=== PATIENT | male | born 1965 | race Caucasian/White ===

== ENCOUNTER → 2016-09-01 | Outpatient (CLI) | payer BC ==
--- NOTE | 2016-09-04 09:11 | MR ---
EXAMINATION: MRI left shoulder HISTORY: Unable to lift arm COMPARISON: None TECHNIQUE: Multiplanar and multisequence images obtained of the left shoulder without contrast. FINDINGS: The acromion is flat with a slight hook. Mild acromioclavicular osseous changes are noted. The supraspinatus, infraspinatus, and teres minor tendons appear grossly intact. The long head edu ps tendon is present within the bicipital groove. Subscapularis tendon appears intact. No significan t joint effusion. There is mildly increased signal within the proximal long head biceps tendon. Ther e is a superior labral tear extending anterior to posteriorly. The glenohumeral articular cartilage is mildly thinned. The inferior glenohumeral ligament is mildly thickened. No suspicious bone marrow signal changes. IMPRESSION: 1. SLAP tear without definite extension into the long head biceps tendon. 2. Mild long head biceps tendinopathy. 3. Thickening of the inferior glenohumeral ligament, this can be seen with evidence of capsulitis. 4. Mild glenohumeral osteoarthritic changes.
== END ==
LOC: MW.MRI 10:18
PROVIDERS: ATTEND Family Medicine
DX: M75.102 Unspecified rotator cuff tear or rupture of left shoulder, not specified as traumatic (principal)
CPT/HCPCS: 73221-26-LT; 73221-LT

== ENCOUNTER 2017-04-03 11:45 | Day surgery (SDC) | payer BC ==
[~2017-04-03 11:45] MED LIST: Lactated Ringers 1,000 ML IV SCH
[2017-04-03] MEDS ORDERED: Propofol 200 MG/20 ML SDV ONE (12:43)
[2017-04-03] MEDS ORDERED: fentaNYL 100 MCG/2 ML SDV ONE (12:43)
--- NOTE | 2017-04-03 13:32 | PCM.OPNOTE ---
- General Post-Op/Procedure Note Date of Surgery/Procedure: 04/03/17 Operative Procedure(s): egd w bx. colonoscopy w snare polypectomy Findings: see dict [id number] Pre Op Diagnosis: gerd and scrn colonoscopy Post-Op Diagnosis: gerd, colon polyp Anesthesia Technique: Moderate Sedation Primary Surgeon: Huber Mcadams Pathology: egd bx colon polyp at 50 cm 3 mm sessile polyp, snare Complications: None Condition: Good
--- NOTE | 2017-04-03 13:45 | PCM.POSTAN ---
POST ANESTHESIA ASSESSMENT - MENTAL STATUS Mental Status: Alert, Oriented - RESPIRATORY Respiratory Status: Respiratory Rate WNL, Airway Patent, O2 Saturation Stable - CARDIOVASCULAR CV Status: Pulse Rate WNL, Blood Pressure Stable - GASTROINTESTINAL GI Status: No Symptoms - POST OP HYDRATION Hydration Status: Adequate & Stable
--- NOTE | 2017-04-03 13:45 | PCM.PREANE ---
Preanesthetic Assessment - Procedure Proposed Procedure: colonoscopy - Anesthesia/Transfusion/Family Hx Anesthesia History: Prior Anesthesia Without Reaction Transfusion History: No Prior Transfusion(s) Intubation History: Unknown - Review of Systems General: No Symptoms Pulmonary: Other (smoker) Cardiovascular: Other (HLD) Gastrointestinal: Other (GERD) Neurological: No Symptoms Other: Reports: None - Physical Assessment NPO Status Date: 04/02/17 NPO Status Time: 22:00 O2 Sat by Pulse Oximetry: 94 Respiratory Rate: 25 Vital Signs: Last Vital Signs Temp 98.8 F 04/03/17 12:09 Pulse 83 04/03/17 13:33 Resp 25 H 04/03/17 13:33 BP 122/90 04/03/17 13:33 Pulse Ox 94 L 04/03/17 13:33 Height: 5 ft 9 in Weight: 220 lb ASA Class: 2 Mental Status: Alert & Oriented x3 Airway Class: Mallampati = 1 Dentition: Reports: Normal Dentition Thyro-Mental Finger Breadths: 3 Mouth Opening Finger Breadths: 3 ROM/Head Extension: Full Lungs: Clear to Auscultation, Normal Respiratory Effort Cardiovascular: Regular Rate, Regular Rhythm, No Murmurs - Allergies Allergies/Adverse Reactions: Allergies Allergy/AdvReac Type Severity Reaction Status Date / Time No Known Allergies Allergy Verified 03/29/17 07:56 - Blood Blood Available: No Product(s) Available: None - Anesthesia Plan Pre-Op Medication Ordered: None - Acknowledgements Anesthesia Type Planned: MAC Pt an Appropriate Candidate for the Planned Anesthesia: Yes Alternatives and Risks of Anesthesia Discussed w Pt/Guardian: Yes Pt/Guardian Understands and Agrees with Anesthesia Plan: Yes PreAnesthesia Questionnaire Respiratory History: Reports: Other (See Below) Other Respiratory History: states he had undiagnosed sleep apnea in the past, has lost weight and she doesnt feel he has it anymore Gastrointestinal History: Reports: GERD Endocrine/Metabolic History: Reports: Obesity/BMI 30+, Other (See Below) Other Endocrine/Metabolic History: "prediabetic" - Past Surgical History Head Surgeries/Procedures: Reports: None Musculoskeletal Surgical History: Reports: Arthroscopic Knee - SUBSTANCE USE Smoking Status *Q: Never Smoker Tobacco Use Within Last Twelve Months: Snuff/Dip Recreational Drug Use History: No - HOME MEDS Home Medications: Home Meds Aspirin [Adult Low Dose Aspirin EC] 81 mg PO DAILY 03/29/17 [History] Omeprazole 40 mg PO DAILY 03/29/17 [History] - CURRENT (IN HOUSE) MEDS Current Meds: Current Medications Lactated Ringer's (Ringers, Lactated) 1,000 mls @ 125 mls/hr IV ASDIRECTED MARIVEL Last Admin: 04/03/17 12:10 Dose: 125 mls/hr Discontinued Medications Fentanyl (Sublimaze) Confirm Administered Dose 100 mcg .ROUTE .STK-MED ONE Stop: 04/03/17 12:44 Propofol (Diprivan 20 Ml) Confirm Administered Dose 400 mg .ROUTE .STK-MED ONE Stop: 04/03/17 12:44
--- NOTE | 2017-04-03 14:08 | PCM48HPAN ---
Post Anesthesia Note - EVALUATION WITHIN 48HRS OF ANESTHETIC Vital Signs in Normal Range: Yes Patient Participated in Evaluation: Yes Respiratory Function Stable: Yes Airway Patent: Yes Cardiovascular Function Stable: Yes Hydration Status Stable: Yes Pain Control Satisfactory: Yes Nausea and Vomiting Control Satisfactory: Yes Mental Status Recovered: Yes
--- NOTE | 2017-04-03 18:45 | OR ---
SURGEON: Huber Mcadams MD DATE OF PROCEDURE: 04/03/2017 PREOPERATIVE DIAGNOSIS: Gastroesophageal reflux disease and screening colonoscopy. POSTOPERATIVE DIAGNOSIS: Gastroesophageal reflux disease and screening colonoscopy. PROCEDURES PERFORMED: EGD with biopsy and colonoscopy with snare polypectomy. COMPLICATIONS: None. PROCEDURE IN DETAIL: EGD: The patient was taken to the endoscopy room, and with the STORAGE BATTERY CHARGER, Diprivan was administered. A well-lubricated EGD scope was gently inserted through the oropharynx, down the esophagus, passing through the gastroesophageal junction, into the stomach. The mucosa was examined upon the passage. Any etiology will be noted. Once in the stomach, we continued to advance to the distal antrum, passed through the pylorus into the second portion of the duodenum. Again, the mucosa was examined for any abnormality and etiology. The scope was then retrieved back to the stomach and then retroflexed to look at the fundus of the stomach. If a biopsy was indicated, we will biopsy the antrum, body, and gastroesophageal junction. The air will be sucked out while the scope is retrieved to reduce the patient's discomfort. The patient tolerated the procedure well. There were no intraoperative complications. Dr. Mcadams was present through the whole procedure. Prior to surgery, a time-out had been called, the patient identified, procedure identified and antibiotic administered. The patient was taken to the endoscopy room. A time out was called, patient identified, and procedure identified. Diprivan was then administrated. Patient went from awake to sleep, hearing doctor talking or door closing is normal. Perineum inspection and digital examination were then performed. A well- lubricated colonoscope was gently inserted through the rectum, advanced past the rectosigmoid junction, the descending colon, splenic flexure, transverse colon, hepatic flexure, ascending colon, arrived to the cecum. Cecum was identified as dictated in the finding. Then the scope was carefully withdrawn while attention was paid to the mucosal surface for any abnormality. Air will be sucked out during the scope withdrawal. At the rectum, retroflexed to examine any rectal diseases, fistula or hemorrhoids. During mucosal examination, abnormality or polyp encountered. Using snare equipment, the abnormality or the polyp was then snared off using electrocautery. The Patient tolerated procedure well. There were no intraoperative complications, and Dr. Mcadams was present throughout the whole procedure. FINDINGS: EGD Findings: 1. The patient is easily sedated with STORAGE BATTERY CHARGER and Diprivan. The patient is soundly snoring. 2. Oropharynx and proximal esophagus are free of disease. No inflammation, stricture, ulceration, and distal esophagus at 40. GE junction at 40, shows mild salmon color change consistent with acid reflux. Stomach rugae is normal in appearance and there is no blood, ulcer, bile, food observed. Antrum is mildly inflamed, but there is no blood, no ulcer. Duodenum was grossly normal in appearance. Scope retrieved back to the stomach. Retroflexed look at the fundus of stomach, there is no hiatal hernia. Biopsy done at antrum, body, GE junction at 40, and sucked out the air while scope pulling out. Colonoscopy Findings: 1. The patient is easily sedated with STORAGE BATTERY CHARGER and Diprivan. The patient is soundly snoring. 2. Bowel prep is average with a large amount of liquid stool. No semi-formed stool. 3. The patient's colon was rather straight forward. Cecum indicated by ileocecal fold, one-to-one indentation, light immittance, and appendix orifice was observed. Mucosa examined upon scope pulling out with some irrigation and the patient has mild diverticulosis on the left colon. No signs or symptoms of diverticulitis and there is a small tiny polyp at distance 50 when scope pulling out. A sessile polyp was removed by snare polypectomy, and there was no other mass, growth, inflammation, stricture, ulceration, AV malformation, and the patient has mild internal hemorrhoids. No external hemorrhoids. The patient would benefit from a repeat colonoscopy in 3 to 5 years from today or if clinically indicated otherwise or if polyp pathology indicated otherwise. PRIMARY SURGEON: SECONDARY SURGEON: INSPECTOR BOILER: REASON INSPECTOR BOILER WAS NECESSARY: ROLE OF INSPECTOR BOILER: GREGORY KEVIN /[id number]
== END 2017-04-03 14:00 | disposition home or self-care (01) ==
LOC: MW.SDS 11:45
PROVIDERS: ATTEND Surgery
DX: Z12.11 Encounter for screening for malignant neoplasm of colon (principal); D12.4 Benign neoplasm of descending colon; K29.50 Unspecified chronic gastritis without bleeding; K57.30 Diverticulosis of large intestine without perforation or abscess without bleeding; K21.9 Gastro-esophageal reflux disease without esophagitis; F17.220 Nicotine dependence, chewing tobacco, uncomplicated; E78.5 Hyperlipidemia, unspecified; E66.3 Overweight; Z68.32 Body mass index [BMI] 32.0-32.9, adult; Z79.82 Long term (current) use of aspirin; Z79.899 Other long term (current) drug therapy; Z98.890 Other specified postprocedural states
CPT/HCPCS: 43239; 45385; J3010; J7120; 00740; 88305; 88312; J2704

== ENCOUNTER 2019-10-17 07:23 | Day surgery (SDC) | payer BC ==
[~2019-10-17 07:23] MED LIST changes: +Glycopyrrolate 0.2 MG/ML SDV ONE; +Lidocaine 2% 5 ML SDV ONE; +Midazolam 1 MG/ML 2 ML SDV ONE; +Propofol 200 MG/20 ML SDV ONE
--- NOTE | 2019-10-17 07:56 | PCM.PREANE ---
Preanesthetic Assessment - Anesthesia/Transfusion/Family Hx Anesthesia History: Prior Anesthesia Without Reaction Family History of Anesthesia Reaction: No Transfusion History: No Prior Transfusion(s) Intubation History: Unknown - Review of Systems General: No Symptoms Pulmonary: No Symptoms Cardiovascular: No Symptoms Gastrointestinal: No Symptoms, Other (colon polyp 3 years ago) Neurological: No Symptoms Other: Reports: None - Physical Assessment Height: 5 ft 9 in Weight: 110.223 kg ASA Class: 3 Mental Status: Alert & Oriented x3 Airway Class: Mallampati = 2 Dentition: Reports: Normal Dentition Thyro-Mental Finger Breadths: 3 Mouth Opening Finger Breadths: 3 ROM/Head Extension: Full Lungs: Clear to Auscultation, Normal Respiratory Effort Cardiovascular: Regular Rate, Regular Rhythm - Allergies Allergies/Adverse Reactions: Allergies Allergy/AdvReac Type Severity Reaction Status Date / Time No Known Allergies Allergy Verified 10/13/19 13:53 - Blood Blood Available: No - Anesthesia Plan Pre-Op Medication Ordered: None - Acknowledgements Anesthesia Type Planned: MAC Pt an Appropriate Candidate for the Planned Anesthesia: Yes Alternatives and Risks of Anesthesia Discussed w Pt/Guardian: Yes Pt/Guardian Understands and Agrees with Anesthesia Plan: Yes PreAnesthesia Questionnaire HEENT History: Reports: Allergic Rhinitis Cardiovascular History: Reports: High Cholesterol Respiratory History: Reports: Sleep Apnea, Other (See Below) (lung nodule on CXR 10/17, recheck in 3 months) Other Respiratory History: does not use a CPAP Gastrointestinal History: Reports: Colon Polyp, GERD Genitourinary History: Reports: None Neurological History: Reports: None Psychiatric History: Reports: None Endocrine/Metabolic History: Reports: Obesity/BMI 30+ (BMI 35.9), Other (See Below) Other Endocrine/Metabolic History: "prediabetic" Hematologic History: Reports: None Immunologic History: Reports: None Oncologic (Cancer) History: Reports: None Dermatologic History: Reports: None - Past Surgical History Head Surgeries/Procedures: Reports: None HEENT Surgical History: Reports: None Cardiovascular Surgical History: Reports: None Respiratory Surgical History: Reports: None GI Surgical History: Reports: Colonoscopy (EGD and colonoscopy '17), EGD Male Surgical History: Reports: None Endocrine Surgical History: Reports: None Neurological Surgical History: Reports: None Musculoskeletal Surgical History: Reports: Arthroscopic Knee, Other (See Below) Other Musculoskeletal Surgeries/Procedures:: left knee surgery for removal of bone chips Oncologic Surgical History: Reports: None Dermatological Surgical History: Reports: None - SUBSTANCE USE Smoking Status *Q: Never Smoker Tobacco Use Within Last Twelve Months: Smokeless Tobacco - HOME MEDS Home Medications: Home Meds Omeprazole 40 mg PO ASDIRECTED 03/29/17 [History] Loratadine [Claritin] 10 mg PO DAILY 10/13/19 [History] - CURRENT (IN HOUSE) MEDS Current Meds: Current Medications Lactated Ringer's (Ringers, Lactated) 1,000 mls @ 125 mls/hr IV ASDIRECTED MARIVEL Discontinued Medications Glycopyrrolate (Robinul) Confirm Administered Dose 0.2 mg .ROUTE .STK-MED ONE Stop: 10/17/19 06:56 Lidocaine (Xylocaine-Mpf 2%) Confirm Administered Dose 5 ml .ROUTE .STK-MED ONE Stop: 10/17/19 06:56 Midazolam HCl (Versed 1 Mg/Ml) Confirm Administered Dose 2 mg .ROUTE .STK-MED ONE Stop: 10/17/19 06:56 Propofol (Diprivan 20 Ml) Confirm Administered Dose 600 mg .ROUTE .STK-MED ONE Stop: 10/17/19 06:56
[2019-10-17] MEDS ORDERED: Lactated Ringers 1,000 ML IV SCH (08:45)
--- NOTE | 2019-10-17 09:26 | PCM.OPNOTE ---
- General Post-Op/Procedure Note Date of Surgery/Procedure: 10/17/19 Operative Procedure(s): egd w bx. colonoscopy w bx Findings: see [id number] Pre Op Diagnosis: gerd and hx colon polyp Post-Op Diagnosis: Same Anesthesia Technique: Moderate Sedation Primary Surgeon: Huber Mcadams Pathology: sent Complications: None Condition: Good
--- NOTE | 2019-10-17 09:51 | PCM.POSTAN ---
POST ANESTHESIA ASSESSMENT - MENTAL STATUS Mental Status: Alert, Oriented - VITAL SIGNS Vital Signs: Last Vital Signs Temp 36.1 C 10/17/19 07:35 Pulse 99 10/17/19 09:48 Resp 24 H 10/17/19 09:48 BP 129/95 H 10/17/19 09:48 Pulse Ox 93 L 10/17/19 09:48 - RESPIRATORY Respiratory Status: Respiratory Rate WNL, Airway Patent, O2 Saturation Stable - CARDIOVASCULAR CV Status: Pulse Rate WNL, Blood Pressure Stable - GASTROINTESTINAL GI Status: No Symptoms - PAIN Pain Score: 0 - POST OP HYDRATION Hydration Status: Adequate & Stable - OBSERVATIONS Free Text/Narrative:: No anesthesia problems
--- NOTE | 2019-10-17 10:08 | PCM48HPAN ---
Post Anesthesia Note - EVALUATION WITHIN 48HRS OF ANESTHETIC Vital Signs in Normal Range: Yes Patient Participated in Evaluation: Yes Respiratory Function Stable: Yes Airway Patent: Yes Cardiovascular Function Stable: Yes Hydration Status Stable: Yes Pain Control Satisfactory: Yes Nausea and Vomiting Control Satisfactory: Yes Mental Status Recovered: Yes Vital Signs: Last Vital Signs Temp 36.7 C 10/17/19 09:54 Pulse 93 10/17/19 09:54 Resp 16 10/17/19 09:54 BP 120/97 H 10/17/19 09:54 Pulse Ox 94 L 10/17/19 09:54 - COMMENTS/OBSERVATIONS Free Text/Narrative:: No anesthesia problems
--- NOTE | 2019-10-17 13:14 | OR ---
SURGEON: Huber Mcadams MD DATE OF PROCEDURE: 10/17/2019 PREOPERATIVE DIAGNOSES: Gastroesophageal reflux disease and history of colon polyp, tubulovillous polyp. POSTOPERATIVE DIAGNOSES: Gastroesophageal reflux disease and history of colon polyp, tubulovillous polyp. PROCEDURES PERFORMED: Esophagogastroduodenoscopy with biopsy and colonoscopy with biopsy. DESCRIPTION OF PROCEDURE: EGD: The patient was taken to the endoscopy room, and with the NANNY CAREGIVER, Diprivan was administered. A well-lubricated EGD scope was gently inserted through the oropharynx, down the esophagus, passing through the gastroesophageal junction, into the stomach. The mucosa was examined upon the passage. Any etiology will be noted. Once in the stomach, we continued to advance to the distal antrum, passed through the pylorus into the second portion of the duodenum. Again, the mucosa was examined for any abnormality and etiology. The scope was then retrieved back to the stomach and then retroflexed to look at the fundus of the stomach. If a biopsy was indicated, we will biopsy the antrum, body, and gastroesophageal junction. The air will be sucked out while the scope is retrieved to reduce the patient's discomfort. The patient tolerated the procedure well. There were no intraoperative complications. Dr. Mcadams was present through the whole procedure. Prior to surgery, a time-out had been called, the patient identified, procedure identified and antibiotic administered. The patient was taken to the endoscopy room. A time out was called, patient identified, and procedure identified. Diprivan was then administrated. Patient went from awake to sleep, hearing doctor talking or door closing is normal. Perineum inspection and digital examination were then performed. A well- lubricated colonoscope was gently inserted through the rectum, advanced past the rectosigmoid junction, the descending colon, splenic flexure, transverse colon, hepatic flexure, ascending colon, arrived to the cecum. Cecum was identified as dictated in the finding. Then the scope was carefully withdrawn while attention was paid to the mucosal surface for any abnormality. Air will be sucked out during the scope withdrawal. At the rectum, retroflexed to examine any rectal diseases, fistula or hemorrhoids. During mucosal examination, abnormality or polyp was noted; picture taken and biopsy performed. Patient tolerated procedure well. There were no intraoperative complications, and Dr. Mcadams was present throughout the whole procedure. FINDINGS: EGD findings: 1. The patient is easily sedated with NANNY CAREGIVER and Diprivan, the patient is soundly snoring. 2. Oropharynx and proximal esophagus are free of disease, infection, stricture, or inflammation. Distal esophagus at GE junction at 40 shows mild salmon-colored change, consistent with mild acid reflux. Stomach rugae are normal in appearance. Antrum is a little bit inflamed, mild gastritis. Duodenum is grossly normal. Retroflexed look at the fundus of stomach, there is no hiatal hernia. Biopsy done at antrum, body, GE junction at 40 and sucked out the gas while scope pulling out. During the whole study, there is no ulcer, blood, bile, or food particle observed. Colonoscopy findings: 1. The patient is easily sedated with NANNY CAREGIVER and Diprivan, the patient is soundly snoring. 2. Bowel prep is average with some moderate amount of liquid stool, no semi- formed stool. Colon rather straightforward. Cecum indicated by ileocecal fold, one-to-one indentation, light emittance, and appendiceal orifice. ScopeGuide is pointing south. Mucosa examined upon scope pulling out. The patient has mild diverticulosis on the left colon, no signs or symptoms of diverticulitis. Two small polyps, one at 25 cm when scope pulling out, which is 3 mm size, and the other one is 15 cm when the scope go in and 3 mm size. Sessile polyp, removed with cold biopsy forceps. The patient has mild internal hemorrhoid. The patient would benefit from repeat colonoscopy in 3 years from today or if clinically indicated or pathology of the polyp indicated otherwise. The patient is having severe sleep apnea. Next time, colonoscopy may be considered as intubated endoscopy per Anesthesiology recommendation. GREGORY / DORITA /[id number]
== END 2019-10-17 10:23 | disposition home or self-care (01) ==
LOC: MW.SDS 07:23
PROVIDERS: ATTEND Surgery
DX: Z12.11 Encounter for screening for malignant neoplasm of colon (principal); D12.6 Benign neoplasm of colon, unspecified; K29.30 Chronic superficial gastritis without bleeding; B96.81 Helicobacter pylori [H. pylori] as the cause of diseases classified elsewhere; K21.9 Gastro-esophageal reflux disease without esophagitis; E11.9 Type 2 diabetes mellitus without complications; E78.5 Hyperlipidemia, unspecified; K64.8 Other hemorrhoids; E78.00 Pure hypercholesterolemia, unspecified; G47.33 Obstructive sleep apnea (adult) (pediatric); F17.220 Nicotine dependence, chewing tobacco, uncomplicated; E66.9 Obesity, unspecified; Z68.35 Body mass index [BMI] 35.0-35.9, adult; Z79.899 Other long term (current) drug therapy; Z86.010 Personal history of colon polyps; Z98.890 Other specified postprocedural states; Z99.89 Dependence on other enabling machines and devices
CPT/HCPCS: 43239; 45380; 82962; J2001; J2250; J2704; J3490; J7120

== ENCOUNTER 2020-02-04 07:26 | Emergency (ER) | payer BC ==
[2020-02-04] MEDS ORDERED: Aspirin 81 MG Tab.Chew PO ONE (07:36)
[2020-02-04] MEDS ORDERED: Sodium Chloride 0.9% 2.5 ML Syringe FLUSH PRN ×2 (07:36)
[2020-02-04] MEDS ORDERED: Sodium Chloride 0.9% 10 ML Syringe FLUSH PRN (07:36)
--- NOTE | 2020-02-04 07:39 | EDM.PDOC ---
ED HPI GENERAL MEDICAL PROBLEM - General Chief Complaint: Chest Pain Stated Complaint: CHEST PAIN Time Seen by Provider: 02/04/20 07:35 - History of Present Illness INITIAL COMMENTS - FREE TEXT/NARRATIVE: History of present illness: Patient presents with chest pain that began yesterday afternoon at 3:00 substernal and he describes it as throbbing.. Patient has type 2 diabetes and a recent diagnosis of congestive heart failure. He states he is feeling better now the pain has gone away he denies any nausea vomiting no shortness of breath no diaphoresis although he has had some swelling in his legs and his hands he denies any cough or fever nothing seems to make the pain better or worse it went away on its own after time was present all night long Review of systems: As per history of present illness and below otherwise all systems reviewed and negative. Past medical history: As per history of present illness and as reviewed below otherwise noncontributory. Surgical history: As per history of present illness and as reviewed below otherwise noncontributory. Social history: No reported history of drug or alcohol abuse. Family history: As per history of present illness and as reviewed below otherwise noncon tributory. Physical exam: HEENT: Atraumatic, normocephalic, pupils reactive, negative for conjunctival pallor or scleral icterus, mucous membranes moist, throat clear, neck supple, nontender, trachea midline. Lungs: Clear to auscultation, breath sounds equal bilaterally, chest nontender. Heart: S1S2, regular, negative for clicks, rubs, or JVD. Abdomen: Soft, nondistended, nontender. Negative for masses or hepatosplenomegaly. Negative for costovertebral tenderness. Pelvis: Stable nontender. Genitourinary: Deferred. Rectal: Deferred. Extremities: Atraumatic, negative for cords or calf pain. Neurovascular unremarkable. 1+ edema in the lower extremities in the hands Neuro: Awake, alert, oriented. Cranial nerves II through XII unremarkable. Cerebellum unremarkable. Motor and sensory unremarkable throughout. Exam nonfocal. Diagnostics: [] Therapeutics: [] Impression: Chest pain [] Plan: Chest pain work-up reevaluation. [] Definitive disposition and diagnosis as appropriate pending reevaluation and review of above. sternal chest Pain Score (Numeric/FACES): 1 - Related Data Allergies Allergy/AdvReac Type Severity Reaction Status Date / Time No Known Allergies Allergy Verified 02/04/20 07:30 Home Meds: Home Meds Omeprazole 40 mg PO ASDIRECTED 03/29/17 [History] Loratadine [Claritin] 10 mg PO DAILY 10/13/19 [History] Furosemide [Lasix] 02/04/20 [History] hydroCHLOROthiazide [Hydrochlorothiazide] 02/04/20 [History] metFORMIN [Glucophage XR] 02/04/20 [History] Past Medical History HEENT History: Reports: Allergic Rhinitis Cardiovascular History: Reports: Heart Failure, High Cholesterol Respiratory History: Reports: Sleep Apnea, Other (See Below) Other Respiratory History: does not use a CPAP Gastrointestinal History: Reports: Colon Polyp, GERD Genitourinary History: Reports: None Neurological History: Reports: None Psychiatric History: Reports: None Endocrine/Metabolic History: Reports: Diabetes, Type II, Obesity/BMI 30+, Other (See Below) Other Endocrine/Metabolic History: "prediabetic" Hematologic History: Reports: None Immunologic History: Reports: None Oncologic (Cancer) History: Reports: None Dermatologic History: Reports: None - Infectious Disease History Infectious Disease History: Reports: Chicken Pox - Past Surgical History Head Surgeries/Procedures: Reports: None HEENT Surgical History: Reports: None Cardiovascular Surgical History: Reports: None Respiratory Surgical History: Reports: None GI Surgical History: Reports: Colonoscopy, EGD Male Surgical History: Reports: None Endocrine Surgical History: Reports: None Neurological Surgical History: Reports: None Musculoskeletal Surgical History: Reports: Arthroscopic Knee, Other (See Below) Other Musculoskeletal Surgeries/Procedures:: left knee surgery for removal of bone chips Oncologic Surgical History: Reports: None Dermatological Surgical History: Reports: None Social & Family History - Family History Family Medical History: Noncontributory - Tobacco Use Years of Tobacco use: 40 Packs/Tins Daily: 1 - Recreational Drug Use Recreational Drug Use: No ED ROS GENERAL - Review of Systems Review Of Systems: See Below ED EXAM, GENERAL - Physical Exam Exam: See Below EKG INTERPRETATION EKG Interpretation Comments: EKG is normal sinus rhythm with a rate 83 bpm with a left axis no ischemic changes read and interpreted by me Course - Vital Signs Text/Narrative:: Patient is pain-free in the ED nonischemic EKG troponin and BNP are negative a 1 view chest x-ray was read interpreted by me with no acute cardiopulmonary pathology. Patient would like to go home he has cardiology he can follow-up with. I recommend he follow-up with his physicians assistant calling today and return to the ED for worsening chest pain. Last Recorded V/S: Last Vital Signs Temp 36.3 C 02/04/20 08:08 Pulse 63 02/04/20 08:32 Resp 16 02/04/20 08:32 BP 136/105 H 02/04/20 08:32 Pulse Ox 97 02/04/20 08:32 - Orders/Labs/Meds Orders: Active Orders 24 hr Category Date Time Status EKG Documentation Completion [RC] STAT Care 02/04/20 07:36 Active Sodium Chloride 0.9% [Saline Flush] Med 02/04/20 07:36 Active 10 ml FLUSH ASDIRECTED PRN Sodium Chloride 0.9% [Saline Flush] Med 02/04/20 07:36 Active 2.5 ml FLUSH ASDIRECTED PRN Saline Lock Insert [OM.PC] Stat Oth 02/04/20 07:36 Ordered Medication Orders Sodium Chloride (Saline Flush) 2.5 ml FLUSH ASDIRECTED PRN PRN Reason: Keep Vein Open Last Admin: 02/04/20 07:32 Dose: 2.5 ml Documented by: SARI Sodium Chloride (Saline Flush) 10 ml FLUSH ASDIRECTED PRN PRN Reason: Keep Vein Open Last Admin: 02/04/20 07:32 Dose: 10 ml Documented by: SARI Labs: Laboratory Tests 02/04/20 02/04/20 02/04/20 Range/Units 07:42 07:42 07:42 WBC 5.48 (4.0-11.0) K/uL RBC 4.31 L (4.50-5.90) M/uL Hgb 13.7 (13.0-17.0) g/dL Hct 39.8 (38.0-50.0) % MCV 92.3 (80.0-98.0) fL MCH 31.8 (27.0-32.0) pg MCHC 34.4 (31.0-37.0) g/dL RDW Std Deviation 42.1 (28.0-62.0) fl RDW Coeff of Ally 12 (11.0-15.0) % Plt Count 294 (150-400) K/uL MPV 8.50 (7.40-12.00) fL Neut % (Auto) 47.6 L (48.0-80.0) % Lymph % (Auto) 35.6 (16.0-40.0) % [place] % (Auto) 10.9 (0.0-15.0) % Eos % (Auto) 5.5 (0.0-7.0) % Baso % (Auto) 0.4 (0.0-1.5) % Neut # (Auto) 2.6 (1.4-5.7) K/uL Lymph # (Auto) 2.0 (0.6-2.4) K/uL [place] # (Auto) 0.6 (0.0-0.8) K/uL Eos # (Auto) 0.3 (0.0-0.7) K/uL Baso # (Auto) 0.0 (0.0-0.1) K/uL Nucleated RBC % 0.0 /100WBC Nucleated RBCs # 0 K/uL Sodium 139 (136-148) mmol/L Potassium 4.2 (3.5-5.1) mmol/L Chloride 104 (98-107) mmol/L Carbon Dioxide 27.0 (21.0-32.0) mmol/L BUN 13 (7.0-18.0) mg/dL Creatinine 1.1 (0.8-1.3) mg/dL Est Cr Clr Drug Dosing 77.66 mL/min Estimated GFR (MDRD) > 60.0 ml/min Glucose 111 H (74-106) mg/dL Calcium 8.8 (8.5-10.1) mg/dL Total Bilirubin 0.3 (0.2-1.0) mg/dL AST 15 (15-37) IU/L ALT 36 (14-63) IU/L Alkaline Phosphatase 50 (46-116) U/L Troponin I < 0.050 (0.000-0.056) ng/mL B-Natriuretic Peptide 53 (<100) PG/ML Total Protein 6.8 (6.4-8.2) g/dL Albumin 3.9 (3.4-5.0) g/dL Globulin 2.9 (2.6-4.0) g/dL Albumin/Globulin Ratio 1.3 (0.9-1.6) Meds: Medications Generic Name Dose Route Start Last Admin Trade Name Freq PRN Reason Stop Dose Admin Sodium Chloride 2.5 ml 02/04/20 07:36 02/04/20 07:32 Saline Flush FLUSH 2.5 ml ASDIRECTED PRN Administration Keep Vein Open Sodium Chloride 10 ml 02/04/20 07:36 02/04/20 07:32 Saline Flush FLUSH 10 ml ASDIRECTED PRN Administration Keep Vein Open Discontinued Medications Generic Name Dose Route Start Last Admin Trade Name Freq PRN Reason Stop Dose Admin Aspirin 324 mg 02/04/20 07:36 02/04/20 07:57 Aspirin PO 02/04/20 07:37 324 mg ONETIME ONE Administration Sodium Chloride 2.5 ml 02/04/20 07:36 Saline Flush FLUSH ASDIRECTED PRN Keep Vein Open Departure - Departure Time of Disposition: 08:38 Disposition: Home, Self-Care 01 Condition: Good Clinical Impression: Chest pain - Discharge Information *PRESCRIPTION DRUG MONITORING PROGRAM REVIEWED*: Not Applicable *COPY OF PRESCRIPTION DRUG MONITORING REPORT IN PATIENT KAROL: Not Applicable Instructions: Nonspecific Chest Pain, Adult, [id number] Referrals: Elizabeth Beltrán NP [Primary Care Provider] - Forms: ED Department Discharge Additional Instructions: The following information is given to patients seen in the emergency department who are being discharged to home. This information is to outline your options for follow-up care. We provide all patients seen in our emergency department with a follow-up referral. The need for follow-up, as well as the timing and circumstances, are variable depending upon the specifics of your emergency department visit. If you don't have a primary care physician on staff, we will provide you with a referral. We always advise you to contact your personal physician following an emergency department visit to inform them of the circumstance of the visit and for follow-up with them and/or the need for any referrals to a consulting specialist. The emergency department will also refer you to a specialist when appropriate. This referral assures that you have the opportunity for follow-up care with a specialist. All of these measure are taken in an effort to provide you with optimal care, which includes your follow-up. Under all circumstances we always encourage you to contact your private physician who remains a resource for coordinating your care. When calling for f ollow-up care, please make the office aware that this follow-up is from your recent emergency room visit. If for any reason you are refused follow-up, please contact the [facility] Emergency Department at and asked to speak to the emergency department charge nurse. Sepsis Event Note (ED) - Evaluation Sepsis Screening Result: No Definite Risk - Focused Exam Vital Signs: Vital Signs Temp Pulse Resp BP Pulse Ox 02/04/20 08:32 63 16 136/105 H 97 02/04/20 08:08 36.3 C 79 16 133/95 H 97 02/04/20 07:27 36.3 C 88 14 166/111 H 96 - My Orders Last 24 Hours: My Active Orders 02/04/20 07:36 EKG Documentation Completion [RC] STAT Sodium Chloride 0.9% [Saline Flush] 10 ml FLUSH ASDIRECTED PRN Sodium Chloride 0.9% [Saline Flush] 2.5 ml FLUSH ASDIRECTED PRN Saline Lock Insert [OM.PC] Stat - Assessment/Plan Last 24 Hours: My Active Orders 02/04/20 07:36 EKG Documentation Completion [RC] STAT Sodium Chloride 0.9% [Saline Flush] 10 ml FLUSH ASDIRECTED PRN Sodium Chloride 0.9% [Saline Flush] 2.5 ml FLUSH ASDIRECTED PRN Saline Lock Insert [OM.PC] Stat
--- NOTE | 2020-02-04 08:02 | CR ---
INDICATION: Chest pain TECHNIQUE: Chest 1 view COMPARISON: None FINDINGS: Cardiovascular and mediastinum: Heart size and vasculature are normal in caliber and appearance. Lungs and pleural spaces: Lungs are clear. No sign of infiltrate or mass. No sign of pleural effusion. No pneumothorax. Bones and soft tissues: No significant findings. IMPRESSION: Negative chest. Dictated by Thai Gould MD @ Feb 04 2020 8:00AM Signed by Dr. Thai Gould @ Feb 04 2020 8:01AM
[2020-02-04 08:20] LABS: BLOOD UREA NITROGEN,BUN 13 mg/dL (7.0-18.0); CHLORIDE,CL 104 mmol/L (98-107); GLUCOSE RANDOM 111 mg/dL (74-106); POTASSIUM,K 4.2 mmol/L (3.5-5.1); SODIUM,NA 139 mmol/L (136-148)
== END 2020-02-04 08:53 | disposition home or self-care (01) ==
LOC: MW.ED 07:26
DX: R07.2 Precordial pain (principal); E11.9 Type 2 diabetes mellitus without complications; I50.9 Heart failure, unspecified; E78.00 Pure hypercholesterolemia, unspecified; K21.9 Gastro-esophageal reflux disease without esophagitis; F17.210 Nicotine dependence, cigarettes, uncomplicated; Z79.84 Long term (current) use of oral hypoglycemic drugs; E66.9 Obesity, unspecified; Z68.34 Body mass index [BMI] 34.0-34.9, adult; Z79.899 Other long term (current) drug therapy
CPT/HCPCS: 36415; 71045; 80053; 83880; 84484; 85025; 93005; 99285; A9270; 93010; 99283

== ENCOUNTER 2020-05-26 08:21 | Day surgery (SDC) | payer BC ==
--- NOTE | 2020-05-26 08:56 | PCM.PREANE ---
Preanesthetic Assessment - Anesthesia/Transfusion/Family Hx Anesthesia History: Prior Anesthesia Without Reaction Family History of Anesthesia Reaction: No Transfusion History: No Prior Transfusion(s) Intubation History: Unknown - Review of Systems General: No Symptoms Pulmonary: No Symptoms Cardiovascular: No Symptoms Gastrointestinal: Abdominal Pain, Nausea, Vomiting Neurological: No Symptoms Other: Reports: None - Physical Assessment Height: 5 ft 9 in Weight: 107.955 kg ASA Class: 3 Mental Status: Alert & Oriented x3 Airway Class: Mallampati = 2 Dentition: Reports: Normal Dentition Thyro-Mental Finger Breadths: 3 Mouth Opening Finger Breadths: 2 ROM/Head Extension: Full Lungs: Clear to Auscultation, Normal Respiratory Effort Cardiovascular: Regular Rate, Regular Rhythm - Allergies Allergies/Adverse Reactions: Allergies Allergy/AdvReac Type Severity Reaction Status Date / Time No Known Allergies Allergy Verified 05/21/20 10:18 - Blood Blood Available: No - Anesthesia Plan Pre-Op Medication Ordered: None - Acknowledgements Anesthesia Type Planned: MAC Pt an Appropriate Candidate for the Planned Anesthesia: Yes Alternatives and Risks of Anesthesia Discussed w Pt/Guardian: Yes Pt/Guardian Understands and Agrees with Anesthesia Plan: Yes PreAnesthesia Questionnaire HEENT History: Reports: Allergic Rhinitis Cardiovascular History: Reports: Heart Failure (with preserved ejection fraction 6 months ago, able to walk couple of blocks or couple of flights of stairs (sl ow0), High Cholesterol, Hypertension Respiratory History: Reports: Sleep Apnea, Other (See Below) Other Respiratory History: has CPAP but does not use a CPAP Gastrointestinal History: Reports: Colon Polyp, GERD, Helicobacter Pylori Genitourinary History: Reports: None Musculoskeletal History: Reports: None Neurological History: Reports: None Psychiatric History: Reports: None Endocrine/Metabolic History: Reports: Diabetes, Type II, Obesity/BMI 30+ (BMI 35.1) Hematologic History: Reports: None Immunologic History: Reports: None Oncologic (Cancer) History: Reports: None Dermatologic History: Reports: None - Infectious Disease History Infectious Disease History: Reports: Chicken Pox - Past Surgical History Head Surgeries/Procedures: Reports: None HEENT Surgical History: Reports: None Cardiovascular Surgical History: Reports: None Respiratory Surgical History: Reports: None GI Surgical History: Reports: Colonoscopy (), EGD () Male Surgical History: Reports: None Endocrine Surgical History: Reports: None Neurological Surgical History: Reports: None Musculoskeletal Surgical History: Reports: Arthroscopic Knee, Other (See Below) Other Musculoskeletal Surgeries/Procedures:: left knee surgery for removal of bone chips Oncologic Surgical History: Reports: None Dermatological Surgical History: Reports: None - SUBSTANCE USE Tobacco Use Within Last Twelve Months: Other (See Below) (chew) - HOME MEDS Home Medications: Home Meds Omeprazole 40 mg PO DAILY 03/29/17 [History] Loratadine [Claritin] 10 mg PO DAILY 10/13/19 [History] Furosemide [Lasix] 20 mg PO DAILY PRN 02/04/20 [History] hydroCHLOROthiazide [Hydrochlorothiazide] 25 mg PO DAILY 02/04/20 [History] metFORMIN [Glucophage XR] 1,000 mg PO DAILY 02/04/20 [History] Fluticasone Propionate [Flonase Allergy Relief] 2 spray NASBOTH DAILY PRN 05/21/20 [History] Ondansetron [Ondansetron ODT] 8 mg SL ASDIRECTED PRN 05/21/20 [History] Rosuvastatin Calcium 20 mg PO DAILY 05/21/20 [History] lisinopriL [Lisinopril] 10 mg PO DAILY 05/21/20 [History] - CURRENT (IN HOUSE) MEDS Current Meds: Current Medications Lactated Ringer's (Ringers, Lactated) 1,000 mls @ 125 mls/hr IV ASDIRECTED MARIVEL Discontinued Medications Glycopyrrolate (Robinul) Confirm Administered Dose 0.2 mg .ROUTE .STK-MED ONE Stop: 05/26/20 07:21 Lidocaine (Xylocaine-Mpf 2%) Confirm Administered Dose 5 ml .ROUTE .STK-MED ONE Stop: 05/26/20 07:21 Midazolam HCl (Versed 1 Mg/Ml) Confirm Administered Dose 2 mg .ROUTE .STK-MED ONE Stop: 05/26/20 07:19 Propofol (Diprivan 20 Ml) Confirm Administered Dose 200 mg .ROUTE .STK-MED ONE Stop: 05/26/20 07:19
--- NOTE | 2020-05-26 09:43 | PCM.POSTAN ---
POST ANESTHESIA ASSESSMENT - MENTAL STATUS Mental Status: Alert, Oriented - VITAL SIGNS Vital Signs: Last Vital Signs Temp 35.9 C L 05/26/20 08:33 Pulse 114 H 05/26/20 09:36 Resp 19 05/26/20 09:36 BP 112/81 05/26/20 09:36 Pulse Ox 95 05/26/20 09:36 - RESPIRATORY Respiratory Status: Respiratory Rate WNL, Airway Patent, O2 Saturation Stable - CARDIOVASCULAR CV Status: Pulse Rate WNL, Blood Pressure Stable - GASTROINTESTINAL GI Status: No Symptoms - PAIN Pain Score: 0 - POST OP HYDRATION Hydration Status: Adequate & Stable - OBSERVATIONS Free Text/Narrative:: No anesthesia problems
--- NOTE | 2020-05-26 10:03 | PCM48HPAN ---
Post Anesthesia Note - EVALUATION WITHIN 48HRS OF ANESTHETIC Vital Signs in Normal Range: Yes Patient Participated in Evaluation: Yes Respiratory Function Stable: Yes Airway Patent: Yes Cardiovascular Function Stable: Yes Hydration Status Stable: Yes Pain Control Satisfactory: Yes Nausea and Vomiting Control Satisfactory: Yes Mental Status Recovered: Yes Vital Signs: Last Vital Signs Temp 36.6 C 05/26/20 09:46 Pulse 106 H 05/26/20 09:46 Resp 16 05/26/20 09:46 BP 113/85 05/26/20 09:46 Pulse Ox 93 L 05/26/20 09:46 - COMMENTS/OBSERVATIONS Free Text/Narrative:: No anesthesia problems
--- NOTE | 2020-05-26 10:57 | PCM.OPNOTE ---
- General Post-Op/Procedure Note Date of Surgery/Procedure: 05/26/20 Findings: see [id number] Pre Op Diagnosis: hpylori infection hx Post-Op Diagnosis: Same Anesthesia Technique: Moderate Sedation Primary Surgeon: Huber Mcadams Pathology: egd bx Complications: None Condition: Stable Free Text/Narrative:: Intake & Output 05/25/20 05/26/20 05/26/20 22:59 06:59 14:59 Intake Total 675 Balance 675
--- NOTE | 2020-05-26 17:40 | OR ---
SURGEON: Huber Mcadams MD DATE OF PROCEDURE: 05/26/2020 PREOPERATIVE DIAGNOSIS: Helicobacter pylori infection. POSTOPERATIVE DIAGNOSIS: Helicobacter pylori infection. PROCEDURE PERFORMED: Esophagogastroduodenoscopy with biopsy. PRIMARY SURGEON: Huber Mcadams MD COMPLICATIONS: None. DESCRIPTION OF PROCEDURE: EGD: The patient was taken to the endoscopy room, and with the ASSISTANT PRINCIPAL, Diprivan was administered. A well-lubricated EGD scope was gently inserted through the oropharynx, down the esophagus, passing through the gastroesophageal junction, into the stomach. The mucosa was examined upon the passage. Any etiology will be noted. Once in the stomach, we continued to advance to the distal antrum, passed through the pylorus into the second portion of the duodenum. Again, the mucosa was examined for any abnormality and etiology. The scope was then retrieved back to the stomach and then retroflexed to look at the fundus of the stomach. If a biopsy was indicated, we will biopsy the antrum, body, and gastroesophageal junction. The air will be sucked out while the scope is retrieved to reduce the patient's discomfort. The patient tolerated the procedure well. There were no intraoperative complications. Dr. Mcadams was present through the whole procedure. Prior to surgery, a time-out had been called, the patient identified, procedure identified and antibiotic administered. FINDINGS: 1. The patient has severe sleep apnea. The patient is sedated with ASSISTANT PRINCIPAL and Diprivan. 2. Oropharynx and proximal esophagus are free of disease, infection, stricture, or inflammation. Distal esophagus at GE junction at 40 shows mild salmon-colored change, consistent with mild acid reflux. Stomach rugae are normal in appearance an antrum is a little inflamed and mild gastritis. Duodenum is grossly normal. Retroflexed look at the fundus of stomach, there is no hiatal hernia. Biopsy done at antrum, body, GE junction at 40 and sucked out the gas while scope pulling out. During the whole study, there is no ulcer, blood, bile, or food particle observed. This time the patient's sedation was good. GREGORY / DORITA /[id number] CASPER
== END 2020-05-26 10:05 | disposition home or self-care (01) ==
LOC: MW.SDS 08:21
PROVIDERS: ATTEND Surgery
DX: K29.50 Unspecified chronic gastritis without bleeding (principal); A04.8 Other specified bacterial intestinal infections; G47.30 Sleep apnea, unspecified; I11.0 Hypertensive heart disease with heart failure; I50.30 Unspecified diastolic (congestive) heart failure; J06.9 Acute upper respiratory infection, unspecified; E11.9 Type 2 diabetes mellitus without complications; K21.9 Gastro-esophageal reflux disease without esophagitis; E78.5 Hyperlipidemia, unspecified; G47.33 Obstructive sleep apnea (adult) (pediatric); F17.220 Nicotine dependence, chewing tobacco, uncomplicated; E66.9 Obesity, unspecified; Z79.899 Other long term (current) drug therapy; Z79.84 Long term (current) use of oral hypoglycemic drugs; Z98.890 Other specified postprocedural states; Z68.35 Body mass index [BMI] 35.0-35.9, adult
CPT/HCPCS: 43239; J2001; J2250; J2704; J3490; J7120; 00731; 88305; 88312